=== PATIENT | female | born 1985 | race Asian ===

== ENCOUNTER 2020-01-10 21:48 | Emergency (ER) | payer OTHER ==
[~2020-01-10] VITALS: Ht 154.9 cm; Wt 50.8 kg
[2020-01-10 21:51] VITALS: Ht 154.9 cm; Wt 50.8 kg
[2020-01-10 23:41] VITALS: BP 122/48
== END 2020-01-10 23:41 | disposition home or self-care (01) ==
LOC: ED 21:48
DX: S92.351A Displaced fracture of fifth metatarsal bone, right foot, initial encounter for closed fracture (principal); W01.0XXA Fall on same level from slipping, tripping and stumbling without subsequent striking against object, initial encounter; Y93.89 Activity, other specified; Y92.89 Other specified places as the place of occurrence of the external cause; Y99.8 Other external cause status